=== PATIENT | female | born 1960 | race Two or more races ===

== ENCOUNTER 2021-12-18 23:38 | Emergency (ER) | payer MEDICAID ==
[~2021-12-18] VITALS: Ht 165.1 cm; Wt 59.0 kg
[2021-12-19] MEDS ORDERED: IBUPROFEN 600MG TABLET PO ONE (01:45)
[2021-12-19] MEDS ORDERED: CLONIDINE 0.2MG TABLET PO ONE (01:45)
[2021-12-19] MEDS ORDERED: LISI10TA26 MT (04:01)
[2021-12-19 06:17] VITALS: BP 164/98
== END 2021-12-19 06:17 | disposition home or self-care (01) ==
LOC: ER 23:38
DX: I16.0 Hypertensive urgency (principal); R51.9 Headache, unspecified; E11.9 Type 2 diabetes mellitus without complications; Z88.0 Allergy status to penicillin
CPT/HCPCS: 99283